=== PATIENT | male | born 1965 | race African-American/Black ===

== ENCOUNTER 2019-02-04 19:22 | Inpatient (IN) ==
[2019-02-04 20:10] LABS: URINE SOURCE CLEAN CATCH
[2019-02-04 20:17] LABS: BILIRUBIN URINE SMALL (NEGATIVE); BLOOD URINE TRACE (NEGATIVE); COLOR YELLOW; GLUCOSE URINE NEGATIVE (NEGATIVE); KETONE URINE TRACE mg/dL (NEGATIVE); LEUKOCYTES URINE NEGATIVE (NEGATIVE); NITRITE URINE NEGATIVE (NEGATIVE); PROTEIN URINE 100 mg/dL (NEGATIVE); SP GRAVITY URINE 1.023; TURBIDITY URINE HAZY (CLEAR); UROBILINOGEN URINE 2 mg/dL (NORMAL)
[2019-02-04 20:24] LABS: UR EPITHELIAL CELLS <10 /HPF (<10); URINE BACTERIA NEGATIVE /HPF; URINE RBC <10 /HPF (<10); URINE WBC <10 /HPF (<10)
[2019-02-04 20:25] LABS: BASO# 0.02 X1000 (0.0-0.2); BASO% 0.2 % (0.0-0.8); HEMATOCRIT 52.9 % (42.0-52.0); HEMOGLOBIN 17.9 g/dL (14.0-18.0); IMM GRAN# 0.07 X1000 (0.0-0.04); IMM GRAN% 0.6 % (0.0-0.5); LYMPH# 1.18 X1000 (1.2-3.4); LYMPH% 10.2 % (20.5-51.1); MCH 27.6 PG (27-31); MCHC 33.8 g/dL (33-37); MCV 81.6 FL (81-99); MONO# 0.48 X1000 (0.11-0.59); MONO% 4.1 % (1.7-9.3); MPV 10.8 FL (7.4-10.4); NEUT# 9.82 X1000 (1.4-6.5); NEUT% 84.9 % (42.2-75.2); PLT 265 X1000 (130-400); RBC 6.48 XMIL (4.7-6.1); RDW 15.3 % (11.5-14.5); WBC 11.57 X1000 (4.8-10.8)
[2019-02-04 20:26] LABS: URINE CASTS NONE SEEN; URINE CRYSTALS CA OXALATE PRESENT; URINE YEAST NONE SEEN
[2019-02-04 20:34] LABS: ALBUMIN 5.6 g/dL (3.5-5.0); CALCIUM 11.3 mg/dL (8.8-10.2); CREATININE 2.5 mg/dL (0.7-1.2); POTASSIUM 4.6 mmol/L (3.5-5.1); TOTAL BILIRUBIN 0.47 mg/dL (0.20-1.00); TOTAL PROTEIN 9.8 g/dL (6.3-8.3)
[2019-02-04 20:35] LABS: ALB/GLOB RATIO 1.3
[2019-02-04] MEDS ORDERED: NS 1,000 ML IV ONE ×2 (22:34)
[2019-02-04] MEDS ORDERED: NS 150 ML IV ONE (22:34)
--- NOTE | 2019-02-04 23:02 | PROVIDER DOCUMENTATION ---
This chart was entered by Heidy Campbell Scribe, acting as scribe for Michelle Saini CRNP. HPI-General Adult - General Chief Complaint: Heat Related Stated Complaint: HEAT RELATED/INMATE WORK RELEASE Time Seen by Provider: 02/04/19 22:52 Source: patient - History of Present Illness -Gen Adult Nature of Presenting Problems: 53yom presents to ED cc cramping from head to toe with some N/V and decreased urine output, that started this morning and just got worse. 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 Pt has no other medical issues. Pt is nontoxic in appearance. Location of Pain/Injury: reports: generalized Quality of Pain: reports: cramping Severity: reports: mild Onset/Duration: reports: this morning Timing: reports: still present, constant Context/Activities at Onset: reports: moderate activity Modifying Factors: worse with: movement Associated Symptoms: reports: nausea, vomiting, weakness Similar Symptoms Previously?: No Recently seen or treated by another doctor?: No Review of Systems - Adult - REVIEW OF SYSTEMS - ADULT Constitutional: reports: see HPI, fatique. denies: chills, fever Eyes: reports: no symptoms reported Ears, Nose, Mouth & Throat: reports: no symptoms reported Cardiovascular: reports: no symptoms reported Respiratory: reports: no symptoms reported Gastrointestinal: reports: see HPI, nausea, vomiting. denies: abdominal pain Genitourinary: reports: see HPI, urinary retention Musculoskeletal: reports: see HPI, other (cramping in whole body) Integumentary: reports: no symptoms reported Neurological: reports: no symptoms reported Psychiatric: reports: no symptoms reported Endocrine: reports: no symptoms reported Hematologic/Lymphatic: reports: no symptoms reported Allergic/Immunologic: reports: no symptoms reported All Other Systems: Reviewed and Negative Past History - Adult - PAST MEDICAL HISTORY-ADULT Review of Records: reports: Nursing Assessment Review, Medications Reviewed, Social history reviewed & non-contributory. Major Childhood Illnesses: reports: denies history Cardiovascular: reports: denies history Respiratory: reports: denies history Gastrointestinal: reports: denies history Obstetrical/Gynecological: reports: denies history Genitourinary: reports: denies history Musculoskeletal: reports: denies history Neurological: reports: denies history Endocrine/Immune: reports: denies history Other Conditions: reports: denies history - IMMUNIZATION STATUS Childhood Immunizations: See Nurse Assessment Flu Vaccine: See Nurse Assessment - FAMILY HISTORY Family History: reviewed, not pertinent Physical Exam-General - PHYSICAL EXAM-ADULT Initial Vital Signs Reviewed: Yes - CONSTITUTIONAL General Appearance: appears well, alert, no apparent distress. negative: anxious, combative - EYES Eyes: PERRL/EOMI, pink conjunctivae. negative: meningismus, pale conjunctivae, photophobia - HEAD, EARS, NOSE, MOUTH & THROAT HENMT: normocephalic/atraumatic. negative: moist mucous membranes (dry), angioedema - RESPIRATORY Respiratory: chest non-tender, lungs clear, normal breath sounds, no pleuratic chest pain, no respiratory distress, no accessory muscle use. negative: crackles, rales, stridor, wheezing - CARDIOVASCULAR Cardiovascular: normal peripheral pulses, regular rate, rhythm, no edema, no gallop, no JVD, no murmur. negative: bradycardia, tachycardia - GASTROINTESTINAL (ABDOMEN) Abdominal Exam: normal bowel sounds, non tender, soft. negative: distended, guarding, rigid, rebound, tenderness - SKIN Integumentary: normal color, normal turgor, warm/dry. negative: cyanosis, diaphoresis, erythema, jaundice - PSYCHIATRIC Psych/Mental Status: normal mood/affect, normal thought content, normal thought process, oriented x 3. negative: disoriented x 3, anxious, disheveled, depressed affect Progress - PLAN OF CARE/RESULTS Progress/Plan/Lab Results: Vital Signs - 8 hr 02/04/19 19:28 02/04/19 20:29 Temperature 97.0 F L 97.5 F L Pulse Rate 57 L 59 L Respiratory Rate 20 18 Blood Pressure 165/102 145/86 O2 Sat by Pulse Oximetry 96 97 Laboratory Results - last 24 hr 02/04/19 02/04/19 02/04/19 19:29 19:29 19:29 WBC 11.57 H RBC 6.48 H Hgb 17.9 Hct 52.9 H MCV 81.6 MCH 27.6 MCHC 33.8 RDW Std Deviation 15.3 H Plt Count 265 MPV 10.8 H Immature Gran % (Auto) 0.6 H Neut % (Auto) 84.9 H Lymph % (Auto) 10.2 L Craig % (Auto) 4.1 Eos % (Auto) 0.0 Baso % (Auto) 0.2 Immature Gran # (Auto) 0.07 H Neut # (Auto) 9.82 H Lymph # (Auto) 1.18 L Craig # (Auto) 0.48 Eos # (Auto) 0.00 Baso # (Auto) 0.02 Sodium 134 L Potassium 4.6 Chloride 91 L Carbon Dioxide 23 L Anion Gap 20 BUN 23 H Creatinine 2.5 H Estimated GFR/1.73 m2 27 BUN/Creatinine Ratio 9 Glucose 127 H Calculated Osmolality 274 Calcium 11.3 H Total Bilirubin 0.47 AST 53 H ALT 24 Alkaline Phosphatase 110 Creatine Kinase Total Protein 9.8 H Albumin 5.6 H Globulin 4.2 Albumin/Globulin Ratio 1.3 Urine Source CLEAN CATCH Urine Color YELLOW Urine Turbidity HAZY Urine pH 5.0 Ur Specific Woodson 1.023 Urine Protein 100 A Ur Glucose (Stick) NEGATIVE Ur Ketones (Stick) TRACE A Urine Blood TRACE A Urine Nitrite NEGATIVE Urine Bilirubin SMALL A Urobilinogen Dipstick 2 A Urine Leukocytes NEGATIVE Urine WBC (Auto) <10 Urine RBC (Auto) <10 U Epithel Cells (Auto) <10 Urine Bacteria (Auto) NEGATIVE Urine Crystals CA OXALATE PRESENT Small Round Cells Not Reportable Urine Casts NONE SEEN Urine Yeast-like Cells NONE SEEN 02/04/19 19:29 WBC RBC Hgb Hct MCV MCH MCHC RDW Std Deviation Plt Count MPV Immature Gran % (Auto) Neut % (Auto) Lymph % (Auto) Craig % (Auto) Eos % (Auto) Baso % (Auto) Immature Gran # (Auto) Neut # (Auto) Lymph # (Auto) Craig # (Auto) Eos # (Auto) Baso # (Auto) Sodium Potassium Chloride Carbon Dioxide Anion Gap BUN Creatinine Estimated GFR/1.73 m2 BUN/Creatinine Ratio Glucose Calculated Osmolality Calcium Total Bilirubin AST ALT Alkaline Phosphatase Creatine Kinase 2383 H Total Protein Albumin Globulin Albumin/Globulin Ratio Urine Source Urine Color Urine Turbidity Urine pH Ur Specific Woodson Urine Protein Ur Glucose (Stick) Ur Ketones (Stick) Urine Blood Urine Nitrite Urine Bilirubin Urobilinogen Dipstick Urine Leukocytes Urine WBC (Auto) Urine RBC (Auto) U Epithel Cells (Auto) Urine Bacteria (Auto) Urine Crystals Small Round Cells Urine Casts Urine Yeast-like Cells Orders Category Date Time Status CBC WITH DIFF [HEME] Stat Lab 02/04/19 19:29 Completed CK TOTAL [CHEM] Stat Lab 02/04/19 19:29 Completed COMPREHENSIVE METABOLIC PANEL [CHEM] Stat Lab 02/04/19 19:29 Completed UA NIMS W/REFLEX CULT [URINALYSIS] Stat Lab 02/04/19 19:29 Completed URINE MANUAL MICROSCOPIC [URINALYSIS] Stat Lab 02/04/19 19:29 Completed 0.9% Sodium Chloride Inj [Ns] 1,000 ml Med 02/04/19 22:34 Active IV 999 mls/hr 0.9% Sodium Chloride Inj [Ns] 1,000 ml Med 02/04/19 22:34 Active IV 999 mls/hr 0.9% Sodium Chloride Inj [Ns] 150 ml Med 02/04/19 22:34 Ordered IV DIRECTED EKG [EKG] Stat Ther 02/04/19 19:48 Ordered Result Diagrams: 02/04/19 19:29 02/04/19 19:29 - EKG 1 Time of EKG reading by physician:: 19:48 EKG Read and Signed by:: Verona Branch EKG Interpretation (*Must complete 3 of following elements*): Abnormal (possible left atrial enlargement) Rate: 53 Rhythm: sinus bradycardia QRS: LVH ST Wave: elevated - CONSULTS/PCP/HOSPITALIST Notification #1 *Consult/PCP/Hospitalist*: DR PARKER Time Discussed: 00:41 Consult Disposition: Admit Departure - Departure Date of Disposition Decision: 02/05/19 Time of Disposition Decision: 00:41 DIAGNOSIS: Rhabdomyolysis Disposition: ADMITTED INPATIENT 09 Certified Medical Emergency: Emergent Condition: Stable Referrals and Follow-Ups: None,PCP [Primary Care Provider] - - Critical Care Note This patient required my direct & personal management of CC.: No Attestation - Physician/ TYLER Attestation Patient care was provided by Advanced Practice Provider:: Yes Advanced Practice Provider:: Michelle Saini Advanced Practice Provider documentation review:: The Mid-level provider documentation, treatment plan and medical decision making was reviewed by the physician who agrees with all treatment and medical decision making by the MLP. The physician spent face to face time with patient:: No Advanced Practice Provider documentation review:: Supervising physician onsite and consulted in the evaluation and care of this patient. The physician did not have a face to face encounter with the patient. This chart was documented by the indicated scribe, (Heidy Campbell, Willy) and accurately reflects the services I performed and decisions made by , Michelle Saini CRNP, as attested by the provider's signature.
[2019-02-05] MEDS ORDERED: ZOFRAN IV PRN (00:56)
[2019-02-05] MEDS ORDERED: TYLENOL PO PRN (00:56)
[2019-02-05] MEDS ORDERED: NS 1,000 ML IV SCH (01:00)
[2019-02-05] MEDS ORDERED: NS 1,000 ML IV ONE (01:20)
[2019-02-05] MEDS ORDERED: VALIUM PO ONE (01:20)
[2019-02-05] MEDS: LOVENOX SUBQ SCH (03:10)
[2019-02-05] MEDS: NS 1,000 ML IV SCH ×6 (03:10→17:41)
--- NOTE | 2019-02-05 05:06 | HISTORY AND PHYSICAL ---
CHIEF COMPLAINT: Nausea, vomiting, decreased urine output and cramps. HISTORY OF PRESENT ILLNESS: This is a 53-year-old male who is on work release, working an outside job. Apparently he started having very bad cramping on return to skilled nursing this morning. He drank some ice cold water and immediate began having vomiting. The staff at the facility stated that they could see his muscles cramping as well. They brought him into the emergency room. Laboratory data showed volume depletion and rhabdomyolysis. He will be admitted for further evaluation and treatment. PAST MEDICAL HISTORY: None to note. PREVIOUS SURGICAL HISTORY: Left rotator cuff repair. FAMILY HISTORY: Positive for diabetes mellitus in first-degree relatives. SOCIAL HISTORY: Four cigarettes a day. No alcohol. No illicit drugs. ALLERGIES: No known drug allergies. HOME MEDICATIONS: No home medications. REVIEW OF SYSTEMS: A 14-point review of systems was conducted with the patient. Positives for nausea, vomiting and full body cramping; also scant urine output with dark urine. All other systems reviewed and found to be negative. PHYSICAL EXAMINATION: VITAL SIGNS: Temperature 97.5, pulse 59, respirations 18, blood pressure 145/86, oxygen saturation 97% on room air. GENERAL: A pleasant 53-year-old male lying in the ER stretcher answers all questions appropriately. He is alert and oriented x3. HEENT: Head is atraumatic, normocephalic. Pupils equal, round and reactive to light. Extraocular eye movements intact. Sclerae are anicteric. Conjunctivae are pink. Oral mucosa is dry. NECK: Supple. No JVD. No thyromegaly. Trachea is midline. No cervical lymphadenopathy. CARDIAC: S1 and S2 appreciated, bradycardic. No murmurs, gallops or rubs. LUNGS: Clear to auscultation bilaterally. No rhonchi, wheezes or rales. Symmetric rise and fall with respirations. ABDOMEN: Soft, nondistended, nontender. Bowel sounds present in all 4 quadrants. Normoactive. No pulsatile mass. No organomegaly. EXTREMITIES: No clubbing, cyanosis or edema; 1+ pedal pulses bilaterally. GENITOURINARY: No bladder distention. Patient voids. Otherwise deferred. NEUROLOGICAL: Alert and oriented x3. Cranial nerves II-XII grossly intact. LABORATORY DATA: WBC 11.57, hemoglobin 17.9, hematocrit 52.9, platelet count 265,000. Sodium 134, potassium 4.6, chloride 91, carbon dioxide 23, BUN 23, creatinine 2.5, glucose 127, calcium 11.3. CK 2383. ASSESSMENT/PLAN: 1. Heat-related volume depletion. Patient was given 2 L bolus in the emergency room. Will give a third liter bolus and then start normal saline at 200 mL/hour. 2. Severe cramping secondary to volume depletion. Patient's potassium is in normal limits. Magnesium is pending. Will give 1 dose of Valium p.o. to help with cramping. This should get better as the patient's volume status returns to normal. 3. Acute kidney injury. Recheck laboratory data in the a.m. after the patient is rehydrated. 4. Hyperglycemia. The patient does not carry a diagnosis of diabetes mellitus. Check hemoglobin A1c. 5. Tobacco use. Smoking cessation was gone over with the patient. He only smokes 4 cigarettes a day. Hopefully, he will quit. Further recommendations per the patient's clinical course. Dictated by JHONATAN Gunderson for Melody Garcia MD cc: JHONATAN Gunderson MD Independent exam and assessment done at bedside with CIRCUS AGENT. Pt is clinically dry and will require lots of crystalloid infusion. Once CK is <1000 and creatinine is normal and pt is asymptomatic and is producing yellowish tinged urine, he can be discharged. [facility]
--- NOTE | 2019-02-05 07:55 | EKG Report ---
Test Performed on : 02/04/2019 7:38:02 PM Test Reason : KS Blood Pressure : / mmHG Vent. Rate : 053 BPM Atrial Rate : 053 BPM P-R Int : 142 ms QRS Dur : 084 ms QT Int : 422 ms P-R-T Axes : 068 061 047 degrees QTc Int : 395 ms Sinus bradycardia. Possible Left atrial enlargement Left ventricular hypertrophy Abnormal ECG No previous ECGs available Unconfirmed Result
[2019-02-05 08:04] LABS: CALCIUM 8.7 mg/dL (8.8-10.2); CREATININE 1.6 mg/dL (0.7-1.2)
[2019-02-05 09:52] LABS: CK INDEX 0.9 (0.0-2.5); CK-MB 45.93 ng/mL (0.0-5.0)
--- NOTE | 2019-02-05 20:05 | PROGRESS NOTE ---
DATE: 02/05/2019 SUBJECTIVE: Patient is resting comfortably in bed. He has been complaining of some muscle soreness, mostly his thighs, especially the medial aspect of his left thigh. As per the patient, he was working outside, it was really hot, and then he started having decreased urine output, really dark urine, and muscle cramping. Laboratory showed rhabdomyolysis. He has been placed on IV fluids. OBJECTIVE: Vital Signs: Temperature 97.7 degrees, pulse 56, respiratory rate 20, blood pressure 104/60, oxygen saturation 99 on room air. HEENT: Head, normocephalic, no trauma. PERRLA. Neck: Supple. No JVD. No masses. Central trachea. Chest: Clear to auscultation. No wheezing. No rales. Abdomen: Soft, nontender, nondistended. No hepatosplenomegaly. Extremities: No edema. No clubbing. No cyanosis. He has some muscle soreness to palpation and pain to palpation at the level of the medial aspect of his thigh, and is hard to palpation. Neurological: The patient is alert and oriented x3. No focal deficits. LABORATORY: Sodium 136, potassium 4, chloride 101, bicarbonate 20, BUN 24, creatinine 1.6, glucose 81, calcium 8.7, magnesium 3.4. CK level 5159. ASSESSMENT AND PLAN: 1. Rhabdomyolysis. We will continue with IV fluids. This patient received some boluses of normal saline in the emergency department. I will continue with 150 mL/h, will continue to monitor. 2. Severe cramping secondary to dehydration. Electrolytes within normal limits. We will continue to monitor. This is getting better. 3. Acute kidney injury. This is getting better, decreased from 2.5 to 1.6. 4. Hyperglycemia. Hemoglobin A1c is 6. Probably, this patient has prediabetes. We will continue to monitor. 5. Tobacco abuse. This patient has been highly advised against tobacco use. Will continue with daily cessation and education. cc: Jamey Rodriguez MD
[2019-02-06] MEDS: NS 1,000 ML IV SCH ×4 (00:11→20:15)
[2019-02-06] MEDS: LOVENOX SUBQ SCH (00:11)
[2019-02-06 08:27] LABS: BASO# 0.02 X1000 (0.0-0.2); BASO% 0.3 % (0.0-0.8); EOS# 0.08 X1000 (0.0-0.7); EOS% 1.3 % (0.0-10.0); HEMATOCRIT 40.3 % (42.0-52.0); HEMOGLOBIN 13.3 g/dL (14.0-18.0); LYMPH# 2.08 X1000 (1.2-3.4); LYMPH% 33.5 % (20.5-51.1); MCH 28.2 PG (27-31); MCV 85.4 FL (81-99); MONO# 0.73 X1000 (0.11-0.59); MONO% 11.8 % (1.7-9.3); MPV 11.1 FL (7.4-10.4); NEUT% 53.1 % (42.2-75.2); PLT 192 X1000 (130-400); RBC 4.72 XMIL (4.7-6.1); RDW 15.1 % (11.5-14.5); WBC 6.21 X1000 (4.8-10.8)
[2019-02-06 08:41] LABS: AGAP 8; BUN 14 mg/dL (8-22); CALCIUM 8.1 mg/dL (8.8-10.2); CHLORIDE 105 mmol/L (98-107); COSMO 273; ESTIMATED GFR > 60; GLUCOSE 77 mg/dL (70-104); POTASSIUM 4.4 mmol/L (3.5-5.1); SODIUM 137 mmol/L (136-145); TCO2 24 mmol/L (25-35)
[2019-02-06 08:52] LABS: CK PROFILE 8309 U/L (24-204)
[2019-02-06 09:06] LABS: CK INDEX 0.3 (0.0-2.5); CK-MB 26.43 ng/mL (0.0-5.0)
[2019-02-06] MEDS: NICODERM PATCH TD SCH (15:32)
--- NOTE | 2019-02-06 20:20 | PROGRESS NOTE ---
DATE: 02/06/2019 SUBJECTIVE: Patient is resting comfortably in bed. He is still complaining of some muscle soreness, mostly his thighs especially the medial aspect of the left thigh. As per the patient, he was working outside and he was really hot. He started having decreased urine output and dark urine, muscle cramping. Laboratory showed elevated CK level, and the diagnosis of rhabdomyolysis has been made. Continue with IV fluids. Kidney function is normal today. OBJECTIVE: Vital Signs: Temperature 97.7 degrees, pulse 49, respiratory rate 18, blood pressure 103/54. Oxygen saturation 100% on room air. HEENT: Head normocephalic. No trauma. PERRLA. Neck: Supple. No JVD. No masses. Central trachea. Chest: Clear to auscultation. No wheezing. No rales. Abdomen: Soft, nontender, nondistended. No hepatosplenomegaly. Extremities: No edema. No clubbing. No cyanosis. He has some muscle soreness to palpation at the level of the medial aspect of his thigh and is a little bit hard to palpation. Neurological: This patient is alert. He is oriented x3. No focal deficits. LABORATORY: WBC 6.2, hemoglobin 13.3, hematocrit 40.3, platelet 192,000. Sodium 137, potassium 4.4, chloride 105, bicarbonate 24, BUN 14, creatinine 1, glucose 77, calcium 8.1. CK 8309. ASSESSMENT AND PLAN: 1. Rhabdomyolysis. We will continue with IV fluids. We will continue to monitor. 2. Severe cramping secondary to dehydration and rhabdomyolysis, electrolytes within normal limits. We will continue to monitor. This is getting better. 3. Acute kidney injury. This is getting better. Actually, resolved. 4. Hyperglycemia. Hemoglobin A1c today is 6. Likely due to prediabetes. We will continue to monitor. 5. Tobacco abuse. This patient has been highly advised against tobacco use. I will continue with daily cessation education. cc: Jamey Rodriguez MD
[2019-02-07] MEDS: NS 1,000 ML IV SCH ×4 (03:24→20:02)
[2019-02-07] MEDS: LOVENOX SUBQ SCH (06:55)
[2019-02-07 07:55] LABS: AGAP 7; BUN 9 mg/dL (8-22); CALCIUM 8.2 mg/dL (8.8-10.2); CHLORIDE 106 mmol/L (98-107); COSMO 274; CREATININE 0.8 mg/dL (0.7-1.2); ESTIMATED GFR > 60; GLUCOSE 83 mg/dL (70-104); POTASSIUM 4.3 mmol/L (3.5-5.1); SODIUM 138 mmol/L (136-145); TCO2 25 mmol/L (25-35)
[2019-02-07 08:42] LABS: CK INDEX 0.2 (0.0-2.5); CK-MB 14.37 ng/mL (0.0-5.0)
[2019-02-07] MEDS: NICODERM PATCH TD SCH (08:59)
--- NOTE | 2019-02-07 14:37 | PROGRESS NOTE ---
DATE: 02/07/2019 SUBJECTIVE: Patient is resting comfortably in bed. He still complains of muscle soreness but better compared with the previous days. His CK level is still elevated around 7000, but it is coming down from 8000 to 109. We will continue with IV fluids. We will continue to monitor. OBJECTIVE: Vital Signs: Temperature 98.2 degrees, pulse 51, respiratory rate 20, blood pressure 125/75. Oxygen saturation 100% on room air. HEENT: Head normocephalic. No trauma. PERRLA. Neck: Supple. No JVD. No masses. Central trachea. Chest: Clear to auscultation. No wheezing. No rales. Abdomen: Soft, nontender, nondistended. No hepatosplenomegaly. Extremities: Some muscle soreness, mostly on his thigh and internal area of the thigh as well with some muscle contraction in that area. Neurological: The patient is alert and oriented x3. No focal deficits. LABORATORY: Sodium 138, potassium 4.3, chloride 106, bicarbonate 25, BUN 9, creatinine 0.8, glucose 83, calcium 8.2. CK 7767. ASSESSMENT AND PLAN: 1. Rhabdomyolysis. We will continue with IV fluids. We will continue to monitor. He is feeling much better. 2. Severe cramping secondary to dehydration and rhabdomyolysis, electrolytes within normal limits. We will continue to monitor. 3. Acute kidney injury. This is getting better. Actually resolved. 4. Hyperglycemia, the patient has pre diabetes. We will continue to monitor. 5. Tobacco abuse. This patient has been advised against tobacco use. I will continue with daily cessation education. 6. Overall, this patient is better. We will continue with IV fluids. His CK level is still high. We will need to keep an eye on this. cc: Jamey Rodriguez MD
[2019-02-08] MEDS: NS 1,000 ML IV SCH ×5 (03:31→22:55)
[2019-02-08] MEDS: LOVENOX SUBQ SCH (05:57)
[2019-02-08 08:22] LABS: CK INDEX 0.1 (0.0-2.5); CK-MB 8.8 ng/mL (0.0-5.0)
[2019-02-08] MEDS: NICODERM PATCH TD SCH (09:07)
--- NOTE | 2019-02-08 14:07 | PROGRESS NOTE ---
DATE: 02/08/2019 SUBJECTIVE: Patient is resting comfortably in bed. The muscle soreness is better. CK level is going down slowly from 7702 to 6100. We will continue with same management. Hopefully tomorrow will call the snf nurse to see if we can set up lab work every 3 to 4 days to make sure that the CK level and the kidney function is stable, so he can go back to this place. OBJECTIVE: Vital Signs: Temperature 98.1 degrees, pulse 48, respiratory rate 16, blood pressure 126/86, oxygen saturation 100% on room air. HEENT: Head normocephalic, no trauma, PERRLA. Neck: Supple. No JVD. No masses. Central trachea. Chest: Clear to auscultation. No wheezing. No rales. Abdomen: Soft, nontender, nondistended. No hepatosplenomegaly. Extremities: Some muscle soreness, mostly the internal area of the thigh. Neurological: Alert and oriented x3. No focal deficit. LABORATORY: CK level 6153. ASSESSMENT AND PLAN: 1. Rhabdomyolysis. We will continue with IV fluids. We will continue to monitor. He is feeling much better. 2. Severe cramping secondary to dehydration and rhabdomyolysis. Electrolytes within normal limits. 3. Acute kidney injury. This is getting better, actually resolved. 4. Hyperglycemia. This patient has prediabetes. We will continue with the same management. 5. Tobacco abuse. This patient has been highly advised against tobacco use. Will continue with daily cessation education. 6. Asymptomatic bradycardia. Aware. No symptoms, like I mentioned before. Overall this patient is better. I will call the snf nurse tomorrow just to make sure that they can get some lab work on this patient at least every 3 to 4 days. We need to make sure the CK level and kidney function are stable. cc: Jamey Rodriguez MD
[2019-02-09] MEDS: LOVENOX SUBQ SCH (05:23)
[2019-02-09 07:16] LABS: BASO# 0.02 X1000 (0.0-0.2); BASO% 0.5 % (0.0-0.8); EOS# 0.12 X1000 (0.0-0.7); EOS% 2.9 % (0.0-10.0); HEMATOCRIT 40.9 % (42.0-52.0); HEMOGLOBIN 13.7 g/dL (14.0-18.0); LYMPH# 1.69 X1000 (1.2-3.4); LYMPH% 40.9 % (20.5-51.1); MCH 28.2 PG (27-31); MCHC 33.5 g/dL (33-37); MCV 84.2 FL (81-99); MONO# 0.47 X1000 (0.11-0.59); MONO% 11.4 % (1.7-9.3); MPV 10.9 FL (7.4-10.4); NEUT# 1.83 X1000 (1.4-6.5); NEUT% 44.3 % (42.2-75.2); PLT 189 X1000 (130-400); RBC 4.86 XMIL (4.7-6.1); RDW 14.3 % (11.5-14.5); WBC 4.13 X1000 (4.8-10.8)
[2019-02-09 07:30] LABS: AGAP 9; BUN 11 mg/dL (8-22); CHLORIDE 105 mmol/L (98-107); COSMO 276; CREATININE 1.1 mg/dL (0.7-1.2); ESTIMATED GFR > 60; GLUCOSE 81 mg/dL (70-104); POTASSIUM 4.2 mmol/L (3.5-5.1); SODIUM 139 mmol/L (136-145); TCO2 25 mmol/L (25-35)
[2019-02-09 07:58] LABS: CK INDEX 0.2 (0.0-2.5); CK-MB 6.38 ng/mL (0.0-5.0)
[2019-02-09 08:09] VITALS: BP 102/56
--- NOTE | 2019-02-10 12:17 | DISCHARGE SUMMARY ---
ADMISSION DATE: 02/05/2019 DISCHARGE DATE: 02/09/2019 DISCHARGE DIAGNOSES: 1. Rhabdomyolysis. 2. Severe cramping secondary to dehydration and rhabdomyolysis. 3. Acute kidney injury, resolved. 4. Hyperglycemia with prediabetes. 5. Tobacco abuse. 6. Asymptomatic bradycardia. HOSPITAL COURSE: A 53-year-old male, who is on work release, working an outside job. Apparently, he started having very bad cramping, and on return to shelter the morning of admission on 02/05/2019, he drank some ice cold water and immediately began having vomiting. The staff at the facility state that they could see his muscles cramping as well. They brought him to the emergency department. Laboratory showed volume depletion and rhabdomyolysis. He was admitted for further evaluation and treatment. He was placed on IV fluids. We noticed that this patient had an acute kidney injury. His bicarbonate was a little bit low, and the CK level was high. Initially his creatinine was 2.5, today it is 1.1, and the CK level initially was 2383 and then increased to 8309 and then decreased to 3000. This patient is urinating without any kind of problem, clear urine. He was complaining of muscle soreness, mostly his lower extremities at the level of the thigh, but today he is not complaining of pain. We noticed that his heart rate was mostly in the 50s. This is chronic, and he is asymptomatic. Also he has prediabetes, and the patient knew about it. We contacted the shelter today. I want this patient to repeat the blood work in 2 days and also in 5 days. The order has been provided. Also this patient will need to drink plenty of fluid, avoid physical activity for 1 month, avoid heat and hot environment. Laboratories need to be checked by the nurse and also the shelter doctor. The shelter nurse's last name was Marsha. At the moment of discharge, this patient was in a stable medical condition, tolerating p.o., ambulating, no focal weakness or deficits. DIAGNOSTIC STUDIES: WBC 4.1, hemoglobin 13.7, hematocrit 40.9, platelets 189,000. Sodium 139, potassium 4.2, chloride 105, bicarbonate 25, BUN 11, creatinine 1.1, glucose 81, calcium 8. CK 3778. DISCHARGE MEDICATIONS: None. DISCHARGE PHYSICAL EXAMINATION: Vital signs: Temperature 98.1 degrees, pulse 49, respiratory rate 18, blood pressure 102/56, oxygen saturation 100% on room air. HEENT: Head normocephalic, no trauma. PERRLA. Neck: Supple. No JVD. No masses. Central trachea. Chest: Clear to auscultation. No wheezing. No rales. Abdomen: Soft, nontender, nondistended. No hepatosplenomegaly. Extremities: No edema. No clubbing. No cyanosis. Mild muscle soreness at the level of the thigh. Neurological: The patient is completely alert. He is oriented. No focal deficits. DISCHARGE MEDICATIONS: None. DISCHARGE INSTRUCTIONS: The patient will need to drink plenty of water. Stay away from NSAIDs. No physical activity for 1 month. I explained to him that he cannot run, lift weight, or be in a really hot environment. He seems to understand. COORDINATION TIME: Time discharging this patient and explaining everything to the patient and the officer at the bedside at least 35 minutes. cc: Jamey Rodriguez MD
== END 2019-02-09 09:00 | DRG 683 ==
LOC: ED 19:22 → SUATTDRO 02-05 01:14 → 3N 02-05 01:14
PROVIDERS: ATTEND Internal Medicine
CPT/HCPCS: 80048; 80053; 81001; 82550; 82553; 83036; 83735; 85025; 93005; A9270; J1650; J7030